=== PATIENT | male | born 1995 | race Caucasian/White ===

== ENCOUNTER 2023-05-22 02:44 | Emergency (ER) | payer BC, SELFPAY ==
[2023-05-22 02:48] VITALS: BP 119/73
[2023-05-22 03:24] VITALS: BMI 30.9
[2023-05-22 03:30] LABS: % Basophils 0.4 % (0-2); % Eosinophils 3.3 % (0-6); % Immature Granulocytes 0.4 % (0-0.5); % Lymphocytes 32.8 % (20.5-51.1); % Monocytes 11.9 % (1.7-9.3); % Neutrophils 51.2 % (42.2-75.2); Absolute Eosinophils 0.3 10^3/uL (0-0.7); Absolute Monocytes 1.1 10^3/uL (0.1-0.6); Absolute Neutrophils 4.7 10^3/uL (1.4-6.5); Hematocrit 42.7 % (39.0-52.0); Hemoglobin 15.1 g/dL (13.0-18.0); Mean Corp Hgb Conc. 35.4 g/dL (33.0-37.0); Mean Corpuscular Hgb 30.5 pg (27.0-31.0); Mean Corpuscular Volume 86.3 fL (80.0-94.0); Mean Platelet Volume 11.1 fL (7.4-10.4); Nucleated Red Blood Cells % 0 % (-); Platelet Count 240 10^3/uL (130-400); Red Blood Cell Count 4.95 10^6/uL (4.70-6.10); Red Cell Dist. Width 13.1 % (11.5-14.5); White Blood Cell Count 9.2 10^3/uL (4.8-10.8)
--- NOTE | 2023-05-22 03:50 | ED.GENMED ---
History of Present Illness
<NDIHI Garcia - Last Filed: 05/22/23 04:50>
General
Chief Complaint: Chest Pain
Source: patient
Exam Limitations: none
Time Seen by Provider: 05/22/23 03:02
Nursing documentation reviewed up to this point in time: agreed with
Travel History
Have you had any contact with someone who has COVID-19?: No
Do you have any symptoms of coronavirus? Fever > 100 degrees, chills, cough, shortness of breath, sore throat, loss of taste or smell, muscle aches, or headache?: No
History of Present Illness
History of Present Illness:
27 y/o M with no cardiac history presents to ED complaining of burning pressure in his chest x 1 day. Patient reports around 1500, he had a burning pain in his left chest that last about 20 minutes. He states the pain was less intense after 20
minutes but still present for about an hour. He tried laying down and napping to make pain go away without relief. Patient states the pain occurred again an hour later. It does not radiate. He did not take any medication for his pain. He denies
eating anything prior to pain onset. Patient does report he had a similar episode of the pain in March and did not see any providers for it. He reports no history of GERD. Denies arm pain, diaphoresis, back pain, nausea, vomiting, diarrhea,
palpitations, LOC, dizziness or blurry vision.
If applicable-neuro sx onset
Onset of symptoms known: Yes
Date of onset of symptoms: 05/21/23
Time of onset of symptoms: 15:00
Past History
<NIDHI Garcia - Last Filed: 05/22/23 04:50>
Past History
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
ED Past Surgical History: Tonsilectomy and Other ([place] tooth)
Social History
Tobacco: Non-smoker
Alcohol: None
Drug: None
Living: with family
Employment: Employed
Review of Systems
<NIDHI Garcia - Last Filed: 05/22/23 04:50>
Review of Systems
Allergies reviewed?: Yes
All Other Systems: ROS reviewed and negative except as documented in HPI and ROS
Constitutional: Reports no symptoms
EENT: Reports no symptoms
Respiratory: Reports no symptoms
Cardiac: Reports chest pain
ABD/GI: Reports no symptoms
: Reports no symptoms
Musculoskeletal: Reports no symptoms
Skin: Reports no symptoms
Neurological: Reports no symptoms
Endocrine: Reports no symptoms
Hematologic/Lymphatic: Reports no symptoms
Psychiatric: Reports no symptoms
Phy Exam
<NIDHI Garcia - Last Filed: 05/22/23 04:50>
General Physical Exam
General Presentation: well appearing and no apparent distress
General age: appears stated age
General Skin: warm
General Habitus: normal
General Mental: alert
General Hydration: appears well hydrated
Eye Exam
Eye Exam: PERRL, EOMI and conjunctiva normal
Cardiovascular Exam
Cardiovascular Exam: regular rate/rhythm, no edema, no gallop, no murmur and normal peripheral pulses
GRICELDA Score
Is patient's age greater than or equal to 65 years: No
Does patient have 3 or more CAD risk factors?: No
Does patient have known CAD: No
Has patient used ASA in past seven days?: No
Pulmonary Exam
Pulmonary Exam: lungs clear, no respiratory distress, no rales, no crackles and no rhonchi
Gastrointestinal Exam
Gastrointestinal Exam: normal bowel sounds, non tender, soft and non distended
Neurological Exam
Neurological Exam: alert and oriented x3
Skin Exam
Skin Exam: normal color, warm/dry and no rash
Psychiatric Exam
Psychiatric Exam: normal mood/affect
<Daniele To DO - Last Filed: 05/22/23 06:14>
Heart Score for Chest Pain Patients
STEMI patient?: No
History: Slightly or Non-Suspicious
ECG: Normal
Age: </= 45 years
Risk Factors: 1 or 2 Risk Factors
Troponin: </= Normal Limit
Heart Score for Chest Pain Patients: 1
Heart Score Risk: 2.5% MACE over next 6 weeks
Course
<NIDHI Garcia - Last Filed: 05/22/23 04:50>
Orders/Labs/Results
Orders:
Orders
05/22/23 02:52
ECG [Electrocardiogram (*1)] Urgent
Reason for Study: Chest Pain
Cardiology Consult: Unknown
EKG- Treatment ONCE
05/22/23 03:22
Complete Blood Count/With Diff Urgent
Comprehensive Metabolic Panel Urgent
Troponin I Urgent
05/22/23 04:45
Electrocardiogram (*1) Urgent
Reason for Study: Chest Pain
EKG- Treatment ONCE
05/22/23 04:53
Troponin I Urgent
Abnormal Lab Results
05/22/23
03:22
MPV 11.1 H fL
(7.4-10.4)
Absolute Monos (auto) 1.1 H 10^3/uL
(0.1-0.6)
Monocytes % 11.9 H %
(1.7-9.3)
ALT 51 H U/L
(0-50)
05/22/23 03:22
05/22/23 03:22
Vital Signs
Initial and Last Documented VS:
Initial Vital Signs
Temp Pulse Resp BP Pulse Ox
97.9 F 65 20 119/73 98
05/22/23 02:48 05/22/23 02:48 05/22/23 02:48 05/22/23 02:48 05/22/23 02:48
Last Documented Vital Signs
Temp Pulse Resp BP Pulse Ox
97.9 F 59 18 107/94 99
05/22/23 02:48 05/22/23 06:00 05/22/23 05:30 05/22/23 06:00 05/22/23 06:00
<Daniele To, DO - Last Filed: 05/22/23 06:14>
Orders/Labs/Results
Orders:
Orders
05/22/23 02:52
ECG [Electrocardiogram (*1)] Urgent
Reason for Study: Chest Pain
Cardiology Consult: Unknown
EKG- Treatment ONCE
05/22/23 03:22
Complete Blood Count/With Diff Urgent
Comprehensive Metabolic Panel Urgent
Troponin I Urgent
05/22/23 04:45
Electrocardiogram (*1) Urgent
Reason for Study: Chest Pain
EKG- Treatment ONCE
05/22/23 04:53
Troponin I Urgent
Abnormal Lab Results
05/22/23
03:22
MPV 11.1 H fL
(7.4-10.4)
Absolute Monos (auto) 1.1 H 10^3/uL
(0.1-0.6)
Monocytes % 11.9 H %
(1.7-9.3)
ALT 51 H U/L
(0-50)
05/22/23 03:22
05/22/23 03:22
Vital Signs
Initial and Last Documented VS:
Initial Vital Signs
Temp Pulse Resp BP Pulse Ox
97.9 F 65 20 119/73 98
05/22/23 02:48 05/22/23 02:48 05/22/23 02:48 05/22/23 02:48 05/22/23 02:48
Last Documented Vital Signs
Temp Pulse Resp BP Pulse Ox
97.9 F 59 18 107/94 99
05/22/23 02:48 05/22/23 06:00 05/22/23 05:30 05/22/23 06:00 05/22/23 06:00
<NIDHI Garcia - Last Filed: 05/22/23 04:50>
MDM/Problems Addressed
Differential Diagnosis Includes:
Anxiety
GERD
MSK pain
IL less likely
MDM/Problems Addressed:
Patient differential includes anxiety, GERD, MSK pain or IL. Patient EKG shows normal sinus rhythm, making IL less likely. Patient also is young male with no cardiac risk factors. However, will repeat EKG. MSK pain not likely given no trauma and no
tenderness on palpation. Patient also denies heavy lifting or repeated movements. Patient has no reported history of anxiety or recent stressor. Patient symptoms may be related to GERD given patient had similar symptoms in March.
<NIDHI Garcia - Last Filed: 05/22/23 04:50>
*Critical Care Note
Total Time (30-74mins, 75-104mins- exclusive of procedures): Not Applicable
ED Attending Note
<NIDHI Garcia - Last Filed: 05/22/23 04:50>
-
Portions of this chart may have been created with voice recognition software.� Occasional wrong word or��sound alike� substitutions may have occurred due to the inherent limitations of voice recognition software.
<Daniele To DO - Last Filed: 05/22/23 06:14>
ED Attending Note
Patient seen and examined by attending physician: Yes
I performed the substantive portion of visit, reviewed & personally made and approve the management plan that is documented in note by myself or FARHEEN.: Yes
ED Attending Note:
Pleasant 27-year-old male presents with chest pressure. He states that the pain began around 2 PM but then dissipated. He went to sleep this evening and states that the pain returned. Denies fever, chills, nausea or vomiting. Patient is a smoker
but denies any other medical risk factors. He does have a familial history for cardiac disease at late age. Patient reports nothing alleviated or exacerbated the pain except time. He reports that the pain does not radiate. Patient had similar
episodes of this pain in the past. He reports not following up for it. Patient was seen in conjunction with the PA student. I have reviewed and agree with the history and treatment plan presented. On my independent physical exam, patient is
awake, alert, and oriented x3 no acute distress. Heart is regular rate rhythm. Lungs are clear to oscillation bilaterally no wheezes rales or rhonchi. Abdomen soft nontender nondistended no pedal splenomegaly. Moves all 4 extremities. Skin is
warm and dry.
Plan first troponin is negative. Will repeat the troponin. Repeat EKG shows normal sinus rhythm rate of 70 with normal intervals, normal axis. No evidence of acute ischemia. When compared to previous EKG taken a few hours earlier there is no
obvious changes noted.
Discharge Plan
Departure
Patient Disposition: Home (Routine Discharge)
Date of Disposition: 05/22/23
Time of Disposition: 05:05
Patient with high blood pressure during this ER visit?: No
Condition: Good
Discharge Problem:
Chest pain
Instructions: Chest Pain PCP Follow Up
Prescriptions:
No Action
No Current Medications
0
Referrals:
[facility] [Outside]
[facility] [Outside]
NONE,* [Family Provider] -
Activity Restrictions/Additional Instructions:
It was a pleasure meeting you and taking part in your care. We hope for your continued healing and wellness.
Please read discharge instructions in their entirety. However, they are for general education and may not describe your exact diagnosis at discharge. Information on your ER visit and medical conditions were discussed with you along with appropriate
follow up information...
If indicated, please take your medications as instructed and indicated on discharge paperwork.
Please schedule a follow up appointment as directed. Call to schedule an appointment
Please return to the emergency department with ANY change in, persisting, or worsening of symptoms. If any of your symptoms do not improve, or persist, or become more severe within 6-12 hours, please return to the emergency department for further
care.
Please return to the emergency department if you develop a headache, neck pain/stiffness, fever greater than 100.4F, chest pain, shortness of breath, persistent nausea, vomiting, slurred speech, difficulty walking, numbness/tingling, weakness, signs
of infection or any other symptoms that are worrisome to you.
If you have any questions or concerns please do not hesitate to call the Hospital at or E-mail me directly at [email or web address]
Interventions
Interventions:
*Risk Screen - Suicide Last Done: 05/22/23 06:09
*General Assessment Last Done: 05/22/23 02:48
*Neglect/Abuse Screening Last Done: 05/22/23 02:48
ED- Fall Risk Assessment Last Done: 05/22/23 02:48
*ED COVID-19 Vaccine History Last Done: 05/22/23 02:48
*Nursing Disposition Last Done: 05/22/23 06:09
ED- Cardiac Assessment Last Done: 05/22/23 03:17
Discharge Date and Time
Discharge Date/Time: 05/22/23 06:10
[2023-05-22 03:59] LABS: Troponin I < 0.012 ng/ml
[2023-05-22 04:00] VITALS: BP 104/91
[2023-05-22 04:20] LABS: ALT (SGPT) 51 U/L (0-50); AST (SGOT) 34 U/L (17-59); Albumin 4.4 g/dl (3.5-5.0); Alkaline Phosphatase 72 U/L (38-126); Blood Urea Nitrogen 11 mg/dl (9-20); Calcium 9.2 mg/dl (8.4-10.2); Carbon Dioxide 26 mmol/L (22-30); Chloride 106 mmol/L (98-107); Estimated Creatinine Clearance > 125 ml/min; Glucose 96 mg/dl (70-99); Potassium 4.2 mmol/L (3.5-5.1); Sodium 137 mmol/L (135-145); Total Bilirubin 0.4 mg/dl (0.2-1.3); Total Protein 7.1 g/dl (6.3-8.2); eGFR > 60.00
[2023-05-22 05:00] VITALS: BP 102/70
[2023-05-22 05:39] LABS: Troponin I < 0.012 ng/ml
[2023-05-22 06:00] VITALS: BP 107/94
== END 2023-05-22 06:10 | disposition home or self-care (01) ==
LOC: EMR 02:44
PROVIDERS: EMERGENCY PHYSICIAN Student in an Organized Health Care Education/Training Program
DX: R07.89 Other chest pain (principal)
CPT/HCPCS: 99283; 80053; 84484; 85025; 93005

== ENCOUNTER 2023-07-02 04:18 | Emergency (ER) | payer BC, SELFPAY ==
[2023-07-02 04:20] VITALS: BP 114/74
--- NOTE | 2023-07-02 04:43 | ED.GENMED ---
History of Present Illness
General
Chief Complaint: Abdominal Pain
Source: patient
Exam Limitations: none
Time Seen by Provider: 07/02/23 04:29
Travel History
Have you had any contact with someone who has COVID-19?: No
Do you have any symptoms of coronavirus? Fever > 100 degrees, chills, cough, shortness of breath, sore throat, loss of taste or smell, muscle aches, or headache?: No
History of Present Illness
History of Present Illness:
See MDM
Past History
Past History
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
ED Past Surgical History: Tonsilectomy and Other ([place] tooth)
Social History
Tobacco: Non-smoker
Alcohol: None
Drug: None
Living: with family
Employment: Employed
Phy Exam
Physical Exam
Physical Exam:
See MDM
Course
Orders/Labs/Results
Orders:
Orders
07/02/23 04:38
CT Abd/pel Without Iv Or Oral Urgent
Comment:
Reason For Exam: intermittent left flank pain
Vital Signs
Initial and Last Documented VS:
Initial Vital Signs
Temp Pulse Resp BP Pulse Ox
97.4 F 78 18 114/74 98
07/02/23 04:20 07/02/23 04:20 07/02/23 04:20 07/02/23 04:20 07/02/23 04:20
Last Documented Vital Signs
Temp Pulse Resp BP Pulse Ox
97.4 F 78 18 114/74 98
07/02/23 04:20 07/02/23 04:20 07/02/23 04:20 07/02/23 04:20 07/02/23 04:20
MDM/Problems Addressed
Differential Diagnosis Includes:
HPI and MDM Narrative:
27-year-old male presenting for evaluation of intermittent left flank pain for the past week. Patient states he started get nervous because symptoms worsened earlier in the evening. Does admit to intermittent soft and hard stools but is unsure if
it is constipation related. He had an issue of rectal bleeding with defecation a while back and is now concerned he could have undiagnosed diverticulitis. Patient states he is not uncomfortable to the point where he needs pain medicine but figured
he would come to the emergency department for reassurance and imaging
On exam, he is well-appearing nontoxic. There is mild left flank pain. No skin changes. Will obtain CT looking for evidence of kidney stone pathology versus constipation
Physical exam
General: Well appearing and non-toxic
HEENT: protecting airway
Neck: appears supple
CV: No evidence of cyanosis
Resp: No accessory muscle use
Abd: Non-distended. Mild flank pain without rebound
Extremities: No deformities
Neuro: alert
Psych: Normal affect
Skin: Intact. No rash
Problems Addressed including Acute and Chronic Conditions affecting care:
1. Intermittent flank pain
Acuity: acute
Prognosis: stable
Details: Will obtain CT to rule out kidney stone versus constipation
Updates
CT negative for acute pathology. Patient feels comfortable going home
Differential Diagnosis (but not limited to): Constipation, kidney stone
Testing considered: Urinalysis and blood work
Drug therapy (if applicable): OTC meds, please see d/c instruction regarding Rx drugs
Amount and/or Complexity of Data Reviewed
Clinical info obtained from: Patient
External data reviewed: N/A
Labs I independently reviewed (but not limited to): N/A
Radiology: the CT scan was personally and independently reviewed. In addition, official CT report reviewed.
Pulse Ox: not hypoxic
EKG independently reviewed: N/A
Market Manager: N/A
Critical Care: N/A
Risk of Complication:
Social Determinants of health: Good social support
Discussed with other providers: N/A
Escalation of Care includes Admit/Obs: After being observed in the Emergency Department, pt stable for discharge.
Occasional wrong word or 'sound a like' substitutions may have occurred due to the inherent limitations of voice recognition software. Read the chart carefully and recognize, using context, where substitutions have occurred.
*Critical Care Note
Total Time (30-74mins, 75-104mins- exclusive of procedures): Not Applicable
ED Attending Note
-
Portions of this chart may have been created with voice recognition software.� Occasional wrong word or��sound alike� substitutions may have occurred due to the inherent limitations of voice recognition software.
Discharge Plan
Departure
Patient Disposition: Home (Routine Discharge)
Date of Disposition: 07/02/23
Time of Disposition: 06:06
Patient with high blood pressure during this ER visit?: No
Discharge Problem:
Abdominal pain
Instructions: Abdominal Pain
Prescriptions:
No Action
No Current Medications
0
Referrals:
NONE,* [Family Provider] -
Activity Restrictions/Additional Instructions:
Please return for any worsening symptoms.
You may return at any time if you have further concerns.
Please follow up with your doctor at the first available appointment, preferably this week.
Thank you for choosing [facility].
Interventions
Interventions:
*Risk Screen - Suicide Last Done: 07/02/23 04:20
*General Assessment Last Done: 07/02/23 04:58
*Neglect/Abuse Screening Last Done: 07/02/23 04:20
ED- Fall Risk Assessment Last Done: 07/02/23 04:58
*ED COVID-19 Vaccine History Last Done: 07/02/23 04:58
SJ-Gbo[facility]-Myscdxzqer Assessment Last Done: 07/02/23 04:58
[2023-07-02 04:58] VITALS: BMI 30.8
== END 2023-07-02 06:15 | disposition home or self-care (01) ==
LOC: EMR 04:18
PROVIDERS: EMERGENCY PHYSICIAN Student in an Organized Health Care Education/Training Program
DX: R10.9 Unspecified abdominal pain (principal); R11.0 Nausea
CPT/HCPCS: 99284; 74176

== ENCOUNTER 2023-08-15 05:27 | Emergency (ER) | payer BC, SELFPAY ==
[2023-08-15 05:31] VITALS: BP 122/78
--- NOTE | 2023-08-15 07:35 | ED.GENMED ---
History of Present Illness
General
Chief Complaint: Male Genito-Urinary Symptoms
Source: patient
Exam Limitations: none
Time Seen by Provider: 08/15/23 06:02
Nursing documentation reviewed up to this point in time: agreed with
Travel History
Have you had any contact with someone who has COVID-19?: No
Do you have any symptoms of coronavirus? Fever > 100 degrees, chills, cough, shortness of breath, sore throat, loss of taste or smell, muscle aches, or headache?: No
History of Present Illness
History of Present Illness:
Patient presents to ED secondary to sudden onset right testicular pain, on approximately 2 hours prior to arrival. Denies fever or chills. Denies trauma. Denies nausea or vomiting. Denies difficulty with urination. Denies penile
pain/discharge/bleeding. Pt is not sexually active. Of note, patient states that he had similar symptoms 3 days ago, which resolved spontaneously on its own. Denies recent change in level of activities. Denies previous history of similar symptoms.
Past History
Past History
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
ED Past Surgical History: Tonsilectomy and Other ([place] tooth)
Social History
Tobacco: Non-smoker
Alcohol: None
Drug: None
Living: with family
Employment: Employed
Review of Systems
Review of Systems
Allergies reviewed?: Yes
All Other Systems: ROS reviewed and negative except as documented in HPI and ROS
Constitutional: Reports no symptoms; Denies fever or chills
ABD/GI: Reports no symptoms; Denies nausea or vomiting
: Reports other (Testicular pain)
Musculoskeletal: Reports no symptoms
Skin: Reports no symptoms
Neurological: Reports no symptoms
Phy Exam
Physical Exam
Physical Exam:
Physical Exam
General: no apparent distress, not acutely ill. afebrile
Head: nc/at. eomi
Neck: supple. no meningeal signs.
Abdomen: normal bowel sounds. not tender.
: mild right testicle tender to palpation, not high riding. normal cremasteric reflex. no penile discharge/tenderness.
Neuro: alert and oriented. no focal neurological deficits
Skin: no rash
Psychiatric: well kept. interactive and cooperative
Extremities: no edema. no calf tenderness.
Course
Orders/Labs/Results
Orders:
Orders
08/15/23 05:46
US Scrotum Urgent
Comment:
Reason For Exam: pain R testicle
08/15/23 09:06
Urinalysis Reflex To Culture Urgent
Date Specimen was Collected: 08/15/23
Time Specimen was Collected: 07:41
Chlamydia/GC by PCR Urgent
MARY Source: Urine
Specimen Description:
Source:: URINE
Date Specimen was Collected: 08/15/23
Time Specimen was Collected: 07:41
Vital Signs
Initial and Last Documented VS:
Initial Vital Signs
Temp Pulse Resp BP Pulse Ox
97.9 F 72 15 122/78 99
08/15/23 05:31 08/15/23 05:31 08/15/23 05:31 08/15/23 05:31 08/15/23 05:31
Last Documented Vital Signs
Temp Pulse Resp BP Pulse Ox
97.9 F 69 16 119/73 97
08/15/23 05:31 08/15/23 09:15 08/15/23 09:15 08/15/23 09:15 08/15/23 09:15
MDM/Problems Addressed
MDM/Problems Addressed:
US:no acute findings
Pain has resolved during observation without any treatment. Pt will be discharged home in stable condition, with referral to urology for outpatient consultation or return to ED with recurrent symptoms. Patient expresses understanding at time of
discharge.
*Critical Care Note
Total Time (30-74mins, 75-104mins- exclusive of procedures): Not Applicable
ED Attending Note
-
Portions of this chart may have been created with voice recognition software.� Occasional wrong word or��sound alike� substitutions may have occurred due to the inherent limitations of voice recognition software.
Discharge Plan
Departure
Patient Disposition: Home (Routine Discharge)
Date of Disposition: 08/15/23
Time of Disposition: 09:21
Patient with high blood pressure during this ER visit?: Yes
Discharge Problem:
Pain in right testicle
Instructions: Testicular Torsion, Adult
Prescriptions:
No Action
No Current Medications
0
Referrals:
Wiley Jj MD [Active] -
NONE,* [Family Provider] -
Activity Restrictions/Additional Instructions:
As discussed, please follow-up with referred urologist for further evaluation and treatment. Please return to ED immediately with recurrent testicular pain.
Interventions
Interventions:
*Risk Screen - Suicide Last Done: 08/15/23 05:31
*General Assessment Last Done: 08/15/23 05:31
*Neglect/Abuse Screening Last Done: 08/15/23 05:31
ED- Fall Risk Assessment Last Done: 08/15/23 05:31
*ED COVID-19 Vaccine History Last Done: 08/15/23 05:31
*Nursing Disposition Last Done: 08/15/23 09:36
ED-Male Genitourinary Assessment Last Done: 08/15/23 09:37
Discharge Date and Time
Discharge Date/Time: 08/15/23 09:38
Print Language: PORTUGUESE
[2023-08-15 09:15] VITALS: BP 119/73
[2023-08-15 09:31] LABS: Urine Albumin Negative (Neg - Trace); Urine Bilirubin Negative (Negative); Urine Character Clear (Clear); Urine Color Yellow; Urine Glucose Negative (Negative); Urine Ketone Negative (Negative); Urine Leukocyte Negative (Negative); Urine Nitrite Negative (Negative); Urine Occult Blood Negative (Negative); Urine Specific Gravity 1.025 (<1.030); Urine Urobilinogen Negative (Neg - 1+)
== END 2023-08-15 09:38 | disposition home or self-care (01) ==
LOC: EMR 05:27
PROVIDERS: EMERGENCY PHYSICIAN Emergency Medicine
DX: N50.811 Right testicular pain (principal); R03.0 Elevated blood-pressure reading, without diagnosis of hypertension
CPT/HCPCS: 99284; 76870; 81003; 87491; 87591; 93976